=== PATIENT | female | born 1990 | race Caucasian/White ===

== ENCOUNTER 2017-04-27 12:24 | Emergency (ER) | payer BC ==
[~2017-04-27] VITALS: Ht 162.6 cm; Wt 59.0 kg
[~2017-04-27 12:24] MED LIST: CIPRO500 MG PO; CYCLOBENZAPRINE10 MG PO; IBUPROFEN200 MG PO; IBUPROFEN600 MG PO; NAPROXEN500 MG PO; NORCO 5-325 TA1 EACH PO; ORTHO TRI-CYCL1 EAC1 PO; ORTHO TRI-CYCL1 EACH PO
[2017-04-27] MEDS ORDERED: CITALOPRAM HBR10 MG PO (12:35)
[2017-04-27] MEDS ORDERED: VENTOLIN HFA18 GM INH (12:36)
[2017-04-27] MEDS ORDERED: SPRINTEC1 EACH PO (12:36)
[2017-04-27] MEDS ORDERED: OMEPRAZOLE20 MG PO (12:36)
--- NOTE | 2017-04-28 17:36 | EKG ---
[facility] [address] [facility] [place] [address] Signed Normal sinus rhythm with sinus arrhythmia Normal ECG No previous ECGs available Confirmed by JEMAL MO MD ([id number]) on 04/28/2017 5:36:08 PM Electronically Signed By: JEMAL MO MD 04/28/17 1736 PATIENT NAME: DEEPTHI TORRES Electrocardiogram DATE OF : [birth year] PHYSICIAN: JEMAL MO MD REPORT #: [id number] REPORT IS CONFIDENTIAL AND NOT TO BE RELEASED WITHOUT AUTHORIZATION
== END 2017-04-27 15:30 | disposition home or self-care (01) ==
LOC: ED 12:24
DX: R55 Syncope and collapse (principal); Z79.899 Other long term (current) drug therapy
CPT/HCPCS: 71046; 80053; 81001; 84703; 85025; 93005; 93010; 99284; J7030

== ENCOUNTER 2019-09-10 02:52 | Emergency (ER) | payer BC ==
[~2019-09-10] VITALS: Ht 162.6 cm; Wt 59.0 kg
[~2019-09-10 02:52] MED LIST changes: +CITALOPRAM HBR10 MG PO; +OMEPRAZOLE20 MG PO; +SPRINTEC1 EACH PO; +VENTOLIN HFA18 GM INH
== END 2019-09-10 04:08 | disposition home or self-care (01) ==
LOC: ED 02:52
DX: R11.10 Vomiting, unspecified (principal); F41.9 Anxiety disorder, unspecified; F32.9 Major depressive disorder, single episode, unspecified; Z79.899 Other long term (current) drug therapy
CPT/HCPCS: 80053; 81001; 83735; 84703; 85025; 96361; 96374; 96375; 99284-25; J1200; J1885; J2405; J2765; J7030; J7040

== ENCOUNTER 2022-10-08 07:47 | Day surgery (SDC) | payer BC ==
[2022-10-03 13:55] VITALS: BP 138/89
[~2022-10-08] VITALS: Ht 162.6 cm; Wt 74.1 kg
--- NOTE | ~2022-10-08 | OR ---
[facility] [address] [place], [place] [address] Draft DATE OF OPERATION: 10/08/2022 SURGEON: Haresh Jarrett DO PREOPERATIVE DIAGNOSIS: Abnormal uterine bleeding, dysmenorrhea. POSTOPERATIVE DIAGNOSES: Abnormal uterine bleeding, dysmenorrhea, anterior serosal fibroid, septate uterus. LEAN SIX SIGMA SENIOR SPECIALIST: Anu Bennett MD. PROCEDURE: Diagnostic laparoscopy, hysteroscopy, D and C. ANESTHESIA: General. BLOOD LOSS: 10 mL. COMPLICATIONS: None. FINDINGS: Laparoscopy, normal-appearing uterus with 3 cm anterior subserosal fibroid at midline low anterior segment, slightly elongated appearing tubes, normal bilateral ovaries. No evidence of endometriosis lesions. Normal-appearing bladder. Normal-appearing posterior cul-de-sac. Normal appearing bilateral ovarian fossa. Hysteroscopy, stenotic internal cervical os. Uterine septum evident. Concern for bicornuate, however, normal appearance on laparoscopy, bilateral tubal ostia visualized. SPECIMEN: Endometrial curettings. INDICATIONS: The patient is a 31-year-old female who presented for evaluation of dysmenorrhea and heavy periods. Initially, we discussed placement of a Mirena IUD, but she became PATIENT NAME: DEEPTHI TORRES OPERATIVE REPORT DATE OF : [birth year] REPORT #: [id number] PHYSICIAN: HARESH JARRETT DO PCP: JOVITA EDWARDS REPORT IS CONFIDENTIAL AND NOT TO BE RELEASED WITHOUT AUTHORIZATION [facility] [address] [place], [place] [address] Draft uncomfortable with this decision and elected to proceed with diagnostic laparoscopy discussed in the context of abnormal uterine bleeding. Hysteroscopy and D and C were recommended as well. Risks, benefits, and alternatives to these procedures were discussed and consent signed and elected to proceed. DESCRIPTION OF PROCEDURE: Patient was taken back to the operating room where she was prepped and draped in normal sterile fashion, positioned in dorsal lithotomy. Anterior lip of the cervix was grasped with an Allis clamp. After placement of Lang catheter, cervix was easily sequentially dilated to accommodate Hulka uterine manipulator. Surgeon's gloves were changed and attention was turned to the abdomen. A 5 mm incision was made under local anesthetic infraumbilically and Visiport trocar was used for direct entry. Abdomen was surveyed as much as possible, but visualization was limited due to bowel and decision was made to place an assist trocar in the left lower quadrant. Local anesthetic was infiltrated. A 5 mm incision made with a scalpel and 5 mm trocar placed under direct visualization without complication or difficulty. The bowel was then able to be retracted. The patient was placed in Trendelenburg positioning and pelvis was surveyed with negative/benign findings as noted above. Pneumoperitoneum was evacuated. All instrumentation was removed. Incisions were closed with 4-0 Monocryl and attention was turned to the vagina. Hulka uterine manipulator was removed. Allis clamp was replaced in the 12 o'clock position and cervix was sequentially dilated with Hegar dilators with some difficulty encountered with size 6 and 7 dilators. Once dilated to a size 7, the hysteroscope was introduced this time without any difficulty and endometrial cavity was surveyed with abnormal findings consistent with septate uterus versus bicornuate uterus as noted above. MyoSure Lite was introduced. Circumferential curettage of the endometrial cavity, taking care to sample each horn/side of the septum. All instrumentation was removed. Sponge and instrument counts were correct and patient was taken to recovery in stable and satisfactory condition with plans for outpatient followup to discuss findings of fibroid and uterine septum versus bicornuate uterus. Haresh Jarrett DO EMZ/MODL /[id number] PATIENT NAME: DEEPTHI TORRES OPERATIVE REPORT DATE OF : [birth year] REPORT #: [id number] PHYSICIAN: HARESH JARRETT DO PCP: JOVITA EDWARDS REPORT IS CONFIDENTIAL AND NOT TO BE RELEASED WITHOUT AUTHORIZATION [facility] [address] [place] [id number] Draft Copies: ~ PATIENT NAME: DEEPTHI TORRES OPERATIVE REPORT DATE OF : [birth year] REPORT #: [id number] PHYSICIAN: HARESH JARRETT DO PCP: JOVITA EDWARDS REPORT IS CONFIDENTIAL AND NOT TO BE RELEASED WITHOUT AUTHORIZATION
[2022-10-08 08:11] VITALS: BP 140/92
[2022-10-08] MEDS ORDERED: VITAMIN D210 MCG PO (08:13)
[2022-10-08] MEDS ORDERED: IRON18 MG PO (08:14)
[2022-10-08] MEDS ORDERED: VITAMIN C100 MG PO (08:14)
--- NOTE | 2022-10-08 14:56 | NUR ---
10/08/22 3527 Carol Arreguin 1441- PT ARRIVES TO UNIT VIA STRETCHER FROM OR. PT REPORTS 9/10 PAIN AND NAUSEA, PRN MEDS GIVEN (SEE EMAR AND COMPATIBILITY TEST ENGINEER BLUE SHEET). PT IS A&O AND ASKING QUESTIONS APPROPRIATELY. PT ON RA AND RESPIRATIONS ARE EVEN AND UNLABORED, NO SIGNS OF DISTRESS. 3775- NELIDA SILVER AT BEDSIDE DISCUSSING PROCEDURE AND PLAN OF CARE. PT ASKING QUESTIONS APPROPRIATELY AT THIS TIME.
[2022-10-08 16:00] VITALS: BP 135/84
--- NOTE | 2022-10-08 16:44 | NUR ---
1600: PT RETURNS TO UNIT VIA STRETCHER FROM PACU. AWAKE AND ALERT ON ARRIVAL. VSS, RESP EVEN AND UNLABORED. C/O 8/10 PAIN, DISCUSSED PAIN MANAGEMENT PLAN AND PT VOICES UNDERSTANDING AT THIS TIME. DENIES NAUSEA AND SOFIA PO INTAKE. LAP SITE C/D/I AND SCANT AMOUNT OF RED DRAINAGE NOTED ON PERIPAD. SCDS IN PLACE. RX GIVEN TO [facility] TO FILL PRIOR TO DC. PUDDING AND ICE WATER PROVIDED REQUESTED. POC DISCUSSED AND PT VOICES UNDERSTANDING. DENIES QUESTIONS AND CONCERNS AT THIS TIME. CALL LIGHT WITHIN REACH
--- NOTE | 2022-10-08 16:46 | NUR ---
1630: TC PLACED TO MD NELIDA AND PAIN RX ORDERS RECEIVED. 1640: PAIN RX ADMINISTERED ORDERED FOR 8/10 ABD PAIN. PT SOFIA WELL. DENIES FURTHER NEEDS, CALL LIGHT WITHIN REACH
[2022-10-08 17:10] VITALS: BP 129/81
--- NOTE | 2022-10-08 17:29 | NUR ---
1700: PT AWAKE AND ALERT VISITING WITH MOTHER AT THE BEDSIDE. VSS, RESP EVEN AND UNLABORED. NO CHANGE TO LAP SITES OR PERIPAD. REPORTS 7/10 PAIN LEVEL AND REPORTS TYPICALLY "LIVES AT 7/10 PAIN AT HOME." DANGLES AT THE BEDSIDE, SOFIA WELL DENIES DIZZINESS AND SOB. AMBULATES TO BR WITH STANDBY FROM THIS RN. SUCCESSFUL FIRST POSTOP VOID, 200MLS. BACK TO STRETCHER. 1720: PT REPORTS SHE WISHES TO DC. SL REMOVED WITH CATH TIP INTACT AND PRESSURE APPLIED TO SITE, WNL. DRESSES FOR DC
--- NOTE | 2022-10-08 17:54 | NUR ---
1745: DC INSTRUCTIONS PROVIDED AND DISCUSSED BY BARRY CHENG. VOICES UNDERSTANDING AND DENIES QUESTIONS AND CONCERNS AT THIS TIME. WHEELED OFF OF UNIT FOR DC BY BARRY CHENG AT THIS TIME
--- NOTE | 2022-10-11 16:19 | PATH ---
[facility] [address] [place], [place] [address] Signed SPECIMEN(S): A ENDOMETRIAL CURETTINGS SPECIMEN SOURCE: A. ENDOMETRIAL CURETTINGS CLINICAL HISTORY: Abnormal uterine bleeding, dysmenorrhea. FINAL PATHOLOGIC DIAGNOSIS: Endometrial curettings: - Proliferative endometrium, negative for hyperplasia or atypia. - Abundant benign myometrial fragments. - Focal endometrial fragments have slight polypoid features. JVR:[id number] MICROSCOPIC EXAMINATION: Histologic sections of all submitted blocks are examined by light microscopy. These findings, together with the gross examination, support the pathologic diagnosis. GROSS DESCRIPTION: The specimen, labeled and designated "Sonja, endometrial curettings," is received in formalin and consists of multiple fragments of white-guardado soft tissue (2.6 x 1.7 x 0.4 cm in aggregate). The specimen is submitted entirely in cassette (A1). VB (under the direct supervision of a pathologist) The Gross Description was prepared using a voice recognition system. The report was reviewed for accuracy; however, sound-alike word errors, addition and/or deletions may occur. If there is any question about this report, please contact Client Services. PERFORMING LABORATORY: Technical component was performed by [facility], [address] [place] [id number] (CLIA# [id number]). Professional interpretation was performed by [facility] - [facility], [address] [place] [id number] (CLIA#: [id number]). Diagnostician: Javy Mccarthy MD Pathologist Electronically Signed 10/11/2022 PATIENT NAME: DEEPTHI TORRES PATHOLOGY DATE OF : [birth year] REPORT #: [id number] PHYSICIAN: JUDITH PATHOLOGY PCP: JOVITA EDWARDS REPORT IS CONFIDENTIAL AND NOT TO BE RELEASED WITHOUT AUTHORIZATION [address] [address] Signed Copies: ~ PATIENT NAME: DEEPTHI TORRES PATHOLOGY DATE OF : [birth year] REPORT #: [id number] PHYSICIAN: JUDITH PATHOLOGY PCP: JOVITA EDWARDS REPORT IS CONFIDENTIAL AND NOT TO BE RELEASED WITHOUT AUTHORIZATION
== END 2022-10-08 17:45 | disposition home or self-care (01) ==
LOC: OPS 07:47 → DS 07:47 → OPS 11:00
PROVIDERS: ATTEND Obstetrics & Gynecology
PROC: 0UDB8ZZ Extraction of Endometrium, Via Natural or Artificial Opening Endoscopic (ICD-10-PCS; principal; 2022-10-08 12:00)
DX: D25.2 Subserosal leiomyoma of uterus (principal); N93.9 Abnormal uterine and vaginal bleeding, unspecified; N94.6 Dysmenorrhea, unspecified; Z90.49 Acquired absence of other specified parts of digestive tract
CPT/HCPCS: 00952; J0131; J1100; J1885; J2001; J2405; J2704; J3010; J7121